=== PATIENT | female | born 1960 | race African-American/Black ===

== ENCOUNTER → 2018-01-03 | Emergency (ER) | payer OTHER ==
[~2018-01-03] VITALS: Ht 157.5 cm; Wt 81.6 kg
[~2018-01-03] MED LIST: ADVIL100 M1; ZANTAC150 M3
== END | disposition home or self-care (01) ==
LOC: ER 15:07
DX: K64.8 Other hemorrhoids (principal)

== ENCOUNTER → 2021-03-12 | Outpatient (CLI) | payer OTHER | END | disposition home or self-care (01) | LOC: PPH VACUNA 15:33 | DX: Z23 Encounter for immunization (principal) ==

== ENCOUNTER → 2021-04-02 08:15 | Outpatient (CLI) | payer OTHER | END | disposition home or self-care (01) | LOC: PPH VACUNA 08:15 | DX: Z23 Encounter for immunization (principal) ==

== ENCOUNTER 2021-11-02 08:00 | Outpatient (CLI) | payer OTHER | END 2021-11-02 08:30 | disposition home or self-care (01) | LOC: PPH VACUNA 08:00 | PROVIDERS: ATTEND Emergency Medicine Pediatric Emergency Medicine | DX: Z23 Encounter for immunization (principal) ==

== ENCOUNTER 2023-04-17 15:19 | Emergency (ER) | payer OTHER ==
[~2023-04-17] VITALS: Ht 157.5 cm; Wt 82.6 kg
== END 2023-04-17 16:40 | disposition home or self-care (01) ==
LOC: ER 15:19
DX: L02.222 Furuncle of back [any part, except buttock and flank] (principal)

== ENCOUNTER 2024-12-13 14:27 | Emergency (ER) | payer OTHER ==
[~2024-12-13] VITALS: Ht 157.5 cm; Wt 83.5 kg
[2024-12-13] MEDS ORDERED: LIPITOR40 M1 PO (14:37)
== END 2024-12-13 18:44 | disposition home or self-care (01) ==
LOC: ER 14:29
DX: H11.32 Conjunctival hemorrhage, left eye (principal); Z88.8 Allergy status to other drugs, medicaments and biological substances

== ENCOUNTER 2024-12-21 11:57 | Outpatient (CLI) | payer OTHER ==
[~2024-12-21 11:57] MED LIST changes: +LIPITOR40 M1 PO
== END 2024-12-21 12:05 | disposition home or self-care (01) ==
LOC: SONOGRAMA 11:57
PROVIDERS: ATTEND Neurological Surgery
DX: R31.29 Other microscopic hematuria (principal)

== ENCOUNTER 2025-03-31 12:16 | Outpatient (CLI) | payer OTHER | END 2025-03-31 12:22 | disposition home or self-care (01) | LOC: RAD 12:16 | DX: N20.0 Calculus of kidney (principal) ==